=== PATIENT | female | born 1945 | race Two or more races ===

== ENCOUNTER → 2016-12-20 | Outpatient (CLI) | payer MEDICARE ==
--- NOTE | 2016-12-21 12:10 | BD ---
EXAMINATION TYPE: MG DEXA axial skeleton. DATE OF EXAM: 12/20/2016 COMPARISON: NONE CLINICAL HISTORY: Postmenopausal screening. Height: 60.5 IN Weight: 114 LBS FRAX RISK QUESTIONS: Alcohol (3 or more units per day): NO Family History (Parent hip fracture): NO Glucocorticoids (More than 3mos): NO (Ex: prednisone, prednisolone, methylprednisolone, dexamethasone, and hydrocortisone). History of Fracture in Adulthood: NO Secondary Osteoporosis: 1. Type 1 Diabetes: NO 2. Hyperthyroidism: NO 3. Menopause before 45: NO 4. Malnutrition: NO 5. Chronic liver disease: NO Rheumatoid Arthritis: NO Current Tobacco Use: NO RISK FACTORS HISTORY OF: Active: YES Postmenopausal woman: AGE 55 MEDICATIONS: Additional Medications: RED YEAST RICE EXAM MEASUREMENTS: Bone mineral densitometry was performed using the [employer]. Bone mineral density as measured about the Lumbar spine is: ----- L1-L4(G/cm2): 1.063 T Score Values are as follows: ----- L2: -0.5 ----- L3: -0.4 ----- L4: -1.8 ----- L1-L4: -1.0 Bone mineral density BASELINE Bone mineral density about the R hip (g/cm2): 0.864 Bone mineral density about the L hip (g/cm2): 0.933 T Score values are as follows: -----R Neck: -1.3 -----L Neck: -0.8 -----R Total: -0.6 -----L Total: 0.2 Bone mineral density BASELINE IMPRESSION: 1. Osteopenia (T Score between -2.5 and -1) as noted by T score values with regards to the right hip. There is slightly increased risk of fracture and the patient may be considered for treatment. Re-Screen 2-5 years. Normal (Values between +1 and -1 indicate normal bone mass) with regards to the left hip. NOTE: T-SCORE=SD OF THE YOUNG ADULT MEAN.
--- NOTE | 2017-01-01 06:57 | MM ---
Reason for exam: screening (asymptomatic). Last mammogram was performed 1 year and 4 months ago. History: Patient is postmenopausal. Family history of breast cancer in grandmother and breast cancer in mother. Physical Findings: A clinical breast exam by your physician is recommended on an annual basis and results should be correlated with mammographic findings. MG 3D Screening Mammo W/Cad Bilateral CC and MLO view(s) were taken. Prior study comparison: August 17, 2015, mammogram, performed at [facility]. August 12, 2014, mammogram, performed at [facility]. The breast tissue is heterogeneously dense. This may lower the sensitivity of mammography. Distortion is seen in the lateral left breast on CC image 18/60 at middle posterior depth 8 cm from nipple is not in profile. ASSESSMENT: Incomplete: need additional imaging evaluation, BI-RAD 0 RECOMMENDATION: Follow-up diagnostic mammogram of the left breast. If lesion persists on supplemental views, image directed ultrasound is recommended. [facility] will attempt to contact patient to return for supplemental views and ultrasound if indicated.
== END | disposition home or self-care (01) ==
LOC: RADMAMWWP 15:06
PROVIDERS: ATTEND Family Medicine
DX: Z12.31 Encounter for screening mammogram for malignant neoplasm of breast (principal); M85.851 Other specified disorders of bone density and structure, right thigh; Z78.0 Asymptomatic menopausal state
CPT/HCPCS: 77080; 77063; G0202

== ENCOUNTER → 2017-01-03 | Outpatient (CLI) | payer MEDICARE ==
--- NOTE | 2017-01-03 15:02 | MM ---
Reason for exam: additional evaluation requested from abnormal screening. Last mammogram was performed less than 1 month ago. History: Patient is postmenopausal. Family history of breast cancer in grandmother at age 86 and breast cancer in mother at age 44. Benign stereotactic core biopsy, 2011. Physical Findings: Nurse did not find any significant physical abnormalities on exam. MG 3D Work Up W/Cad LT ML and CC view(s) were taken of the left breast. Prior study comparison: December 20, 2016, bilateral MG 3d screening mammo w/cad. August 17, 2015, mammogram, performed at [facility]. The breast tissue is heterogeneously dense. This may lower the sensitivity of mammography. Finding: There are typically benign round calcifications in the left breast. No distinct lesion persists on additional views. These results were verbally communicated with the patient and result sheet given to the patient on 01/03/17. ASSESSMENT: Benign, BI-RAD 2 RECOMMENDATION: Return to routine screening mammogram schedule for both breasts.
== END | disposition home or self-care (01) ==
LOC: RADMAMWWP 14:04
PROVIDERS: ATTEND Family Medicine
DX: R92.8 Other abnormal and inconclusive findings on diagnostic imaging of breast (principal)
CPT/HCPCS: G0206; G0279

== ENCOUNTER → 2018-01-09 | Outpatient (CLI) | payer MEDICARE ==
--- NOTE | 2018-01-10 14:06 | MM ---
Reason for exam: screening (asymptomatic). Last mammogram was performed 1 year ago. History: Patient is postmenopausal. Family history of breast cancer in grandmother at age 86 and breast cancer in mother at age 44. Benign stereotactic core biopsy, 2011. Physical Findings: A clinical breast exam by your physician is recommended on an annual basis and results should be correlated with mammographic findings. MG 3D Screening Mammo W/Cad Bilateral CC and MLO view(s) were taken. Prior study comparison: January 03, 2017, left breast MG 3d work up w/cad LT. December 20, 2016, bilateral MG 3d screening mammo w/cad. The breast tissue is heterogeneously dense. This may lower the sensitivity of mammography. Benign appearing bilateral calcifications. Right biopsy marker noted. ASSESSMENT: Benign, BI-RAD 2 RECOMMENDATION: Routine screening mammogram of both breasts in 1 year.
== END | disposition home or self-care (01) ==
LOC: RADMAMWWP 16:44
PROVIDERS: ATTEND Family Medicine
DX: Z12.31 Encounter for screening mammogram for malignant neoplasm of breast (principal)
CPT/HCPCS: 77063; 77067